=== PATIENT | male | born 1975 | race Caucasian/White ===

== ENCOUNTER 2022-08-29 16:14 | Emergency (ER) | payer BC ==
[~2022-08-29] VITALS: Ht 167.6 cm; Wt 72.6 kg
[2022-08-29 16:20] VITALS: BP_SYST 147
--- NOTE | 2022-08-29 16:25 | NUR ---
Placed in room 7 . Placed on groundwater monitoring technician, blood pressure machine and pulse oximeter. To gown for exam. Side rails up. Report given to ADALBERTO RIZZO.
--- NOTE | 2022-08-29 16:27 | NUR ---
PATIENT CAME IN FROM HOME C/O JAW PAIN AND CLICKING SOUND TIMES TWO WEEKS. PT STATES IN THE LAST 24 HOURS HE HAS BEEN HAVING A HARD TIME EATING AND DRINKING DUE TO PAIN. DENIES MEDICAL/SURGICAL HX. VSS, PT IN NO ACUTE DISTRESS AT THIS TIME. PT IS A&OX4, CALM AND COOPERATIVE. CARE TO BE PROVIDED ORDERED.
--- NOTE | 2022-08-29 16:38 | NUR ---
ER Dr. ORDAZ at bedside examining patient.
[2022-08-29] MEDS ORDERED: DIPH25CA83 PO (17:43)
[2022-08-29 18:14] LABS: BASOPHILS % (AUTO) 0.4 % (0.0-2.0); EOSINOPHILS # (AUTO) 0.1 K/uL (0.0-0.4); EOSINOPHILS % (AUTO) 1.4 % (0.0-4.0); HEMATOCRIT 41.2 % (36-54); HEMOGLOBIN 14.3 g/dL (14.0-18.0); LYMPHOCYTES # (AUTO) 1.5 K/uL (1.0-5.5); LYMPHOCYTES % (AUTO) 15.3 % (20.5-51.5); MEAN CORPUSCULAR HEMOGLOBIN 30 pg (27-31); MEAN CORPUSCULAR HGB CONC 35 % (32-36); MEAN CORPUSCULAR VOLUME 87 fL (79.0-98.0); MONOCYTES # (AUTO) 0.5 K/uL (0.0-1.0); MONOCYTES % (AUTO) 5.4 % (1.7-9.3); NEUTROPHILS # (AUTO) 7.4 K/uL (1.8-7.7); NEUTROPHILS % (AUTO) 77.5 % (40.0-70.0); PLATELET COUNT (AUTO) 217 K/uL (130-430); RED BLOOD CELL COUNT(AUTO) 4.72 MIL/uL (4.2-6.2); RED CELL DISTRIBUTION WIDTH 14.1 % (9.0-15.0); WHITE BLOOD COUNT (AUTO) 9.5 K/uL (4.8-10.8)
[2022-08-29 18:23] LABS: ALANINE AMINOTRANSFERASE 34 U/L (12-78); ALBUMIN 3.5 g/dL (3.4-4.8); ANION GAP 0 (5-15); ASPARTATE AMINOTRANSFERASE 20 U/L (10-37); CALCIUM 8.9 mg/dL (8.4-11.0); CHLORIDE 105 mmol/L (98-107); CREATININE 1.49 mg/dL (0.55-1.30); GLUCOSE 117 mg/dL (70-99); POTASSIUM 3.8 mmol/L (3.5-5.1); TOTAL BILIRUBIN 0.4 mg/dL (0.0-1.0); UREA NITROGEN, BLOOD 11 mg/dL (8-21)
[2022-08-29 18:32] LABS: GFR AFRICAN AMERICAN 66 mL/min (>90)
--- NOTE | 2022-08-29 18:52 | NUR ---
Patient given written and verbal discharge instructions and verbalizes understanding. ER DR. ISAAK RODRIGUEZ discussed with patient the results and treatment provided. Patient in stable condition. ID arm band removed. IV catheter removed intact and dressing applied, no active bleeding. Rx of DIPHENHYDRAMINE given. Patient educated on pain management and to follow up with PMD. Pain Scale 0/10. Opportunity for questions provided and answered. Medication side effect fact sheet provided.
== END 2022-08-29 18:50 | disposition home or self-care (01) ==
LOC: SED 16:14
DX: G24.9 Dystonia, unspecified (principal); R68.84 Jaw pain; Z79.899 Other long term (current) drug therapy
CPT/HCPCS: 36415; 71045; 80053; 84484; 85025; 93005; 99285

== ENCOUNTER 2022-09-04 16:06 | Emergency (ER) | payer BC ==
[~2022-09-04] VITALS: Ht 170.2 cm; Wt 72.6 kg
[~2022-09-04 16:06] MED LIST: DIPH25CA83 PO
--- NOTE | 2022-09-04 16:15 | NUR ---
Placed in room 07 . Placed on cap sewer, blood pressure machine and pulse oximeter. To gown for exam. Side rails up. Report given to ADALBERTO RIZZO.
[2022-09-04 16:16] VITALS: BP_SYST 142
--- NOTE | 2022-09-04 16:16 | NUR ---
PATIENT CAME IN FROM HOME C/O JAW PAIN TIMES TWO WEEKS. PT WAS HERE LAST WEEK C/O THE SAME CONCERN. NO ISSUES WERE IDENTIFIED AT THAT TIME. PT HAS HX OF KIDNEY DISEASE. DENIES ADDITIONAL MEDICAL HX. JAW PAIN IS EXASCERBATED BY EATING AND PATIENT IS CONCERNED HE IS LOSING WEIGHT A RESULT. PT IS A&OX4, CALM AND COOPERATIVE. CARE TO BE PROVIDED ORDERED.
--- NOTE | 2022-09-04 16:17 | NUR ---
#20 gauge angiocath placed to L AC. Use of asceptic technique. Opsite placed over site. Blood return noted. Blood for lab drawn from site. Flushed with 10 cc of normal saline. No evidence of infiltration noted. Patient tolerated well.
--- NOTE | 2022-09-04 16:22 | NUR ---
ER Dr. ORDAZ at bedside examining patient.
--- NOTE | 2022-09-04 16:45 | NUR ---
PATIENT TRANSPORTED TO RADIOLOGY VIA WHEELCHAIR ACCOMPANIED BY STAFF.
[2022-09-04] MEDS ORDERED: iohexoL 350 mgI/mL, 100 ML INFUS..BTL IV ONE (16:48)
[2022-09-04 17:01] LABS: BASOPHILS # (AUTO) 0.1 K/uL (0.0-0.2); BASOPHILS % (AUTO) 0.7 % (0.0-2.0); EOSINOPHILS # (AUTO) 0.1 K/uL (0.0-0.4); EOSINOPHILS % (AUTO) 1.4 % (0.0-4.0); HEMATOCRIT 40.7 % (36-54); HEMOGLOBIN 14.1 g/dL (14.0-18.0); LYMPHOCYTES # (AUTO) 1.6 K/uL (1.0-5.5); LYMPHOCYTES % (AUTO) 18.2 % (20.5-51.5); MEAN CORPUSCULAR HEMOGLOBIN 30 pg (27-31); MEAN CORPUSCULAR HGB CONC 35 % (32-36); MEAN CORPUSCULAR VOLUME 87 fL (79.0-98.0); MONOCYTES # (AUTO) 0.5 K/uL (0.0-1.0); NEUTROPHILS # (AUTO) 6.3 K/uL (1.8-7.7); NEUTROPHILS % (AUTO) 73.7 % (40.0-70.0); PLATELET COUNT (AUTO) 223 K/uL (130-430); RED BLOOD CELL COUNT(AUTO) 4.66 MIL/uL (4.2-6.2); RED CELL DISTRIBUTION WIDTH 13.8 % (9.0-15.0); WHITE BLOOD COUNT (AUTO) 8.5 K/uL (4.8-10.8)
[2022-09-04 17:10] LABS: ANION GAP 4 (5-15); CALCIUM 9.1 mg/dL (8.4-11.0); CHLORIDE 104 mmol/L (98-107); CREATININE 1.63 mg/dL (0.55-1.30); GLUCOSE 86 mg/dL (70-99); UREA NITROGEN, BLOOD 15 mg/dL (8-21)
[2022-09-04 17:12] LABS: GFR AFRICAN AMERICAN 59 mL/min (>90)
[2022-09-04 17:15] LABS: ALANINE AMINOTRANSFERASE 32 U/L (12-78); ALBUMIN 3.8 g/dL (3.4-4.8); ASPARTATE AMINOTRANSFERASE 26 U/L (10-37); TOTAL BILIRUBIN 0.6 mg/dL (0.0-1.0)
[2022-09-04 17:18] LABS: C-REACTIVE PROTEIN QUANT < 0.2 mg/dL (0-0.5)
--- NOTE | 2022-09-04 17:50 | NUR ---
Patient given written and verbal discharge instructions and verbalizes understanding. ER DR. ORLIN RODRIGUEZ discussed with patient the results and treatment provided. Patient in stable condition. ID arm band removed. Patient educated on pain management and to follow up with PMD. Pain Scale 4/10. Opportunity for questions provided and answered. Medication side effect fact sheet provided.
== END 2022-09-04 17:50 | disposition home or self-care (01) ==
LOC: SED 16:06
DX: J02.9 Acute pharyngitis, unspecified (principal); R68.84 Jaw pain; Z79.899 Other long term (current) drug therapy
CPT/HCPCS: 99285; 70491; 80053; 85025; 86140; 36415; 76376; Q9967